=== PATIENT | male | born 1965 | race Caucasian/White ===

== ENCOUNTER 2019-12-14 14:17 | Outpatient (CLI) | payer OTHER ==
--- NOTE | 2019-12-14 16:09 | MRI ---
MRI OF THE LEFT KNEE WITHOUT CONTRAST: 12/14/19 HISTORY: Tear medial meniscus of left knee. COMPARISON: None. FINDINGS: MEDIAL MENISCUS: Superior articular surface flap tear body and posterior horn medial meniscus involving the free edge intermediate portion of the red zone. Gutter extrusion of the flap fragments 1 to 2 mm. LATERAL MENISCUS: Intact. ACL, PCL, MCL and LCL are intact. EXTENSOR MECHANISM: Quadriceps tendon, patella and patellar tendon are intact. There is abnormally thickened medial gomes lar plica which is scarred. CARTILAGE: Patellofemoral compartment: Multifocal full thickness cartilage fissures of the lateral patellar facet superiorly. There is some early subcortical reaction marrow change. Mild chondral fraying medial trochlea. Medial compartment: Involving the central weightbearing surface of the medial femoral condyle, 50% chondral fraying. No f ull thickness defect. Lateral compartment: Intact. MUSCLES: Normal muscle signal and bulk. SOFT TISSUES: Trace popliteal cyst. Minimal joint effusion. Mild distention of the superficial draining veins. IMPRESSION: 1. Superior articular surface flap tear of the body and posterior horn medial meniscus with 1 to 2 mm gutter extrusion. There is extension of fluid along the deep MCL from chronic tear. 2. Abnormally thickened and scarred medial patellar plica can be seen with plical impingement. 3. Multifocal full thickness cartilage fissures of the superior aspect lateral patellar facet. 4. 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 POS: [facility]
== END 2019-12-14 14:18 | disposition home or self-care (01) ==
LOC: SCSMRI 14:17
PROVIDERS: ATTEND Orthopaedic Surgery
DX: S83.242A Other tear of medial meniscus, current injury, left knee, initial encounter (principal); M94.262 Chondromalacia, left knee; M94.8X6 Other specified disorders of cartilage, lower leg; M25.862 Other specified joint disorders, left knee

== ENCOUNTER 2020-04-21 06:30 | Outpatient (CLI) | payer OTHER ==
[2020-04-21 13:56] LABS: #Eosinphils 0.2 thou/uL (0.0-0.7); #Lymphocytes 1.4 thou/uL (1.20-3.40); #Monocytes 0.5 thou/uL (0.11-0.59); #Neutrophils 3.9 thou/uL (1.40-6.50); %Basophils 0.2 % (0.0-1.0); %Eosinophils 3.3 % (0.0-10.0); %Lymphocytes 22.7 % (21.0-51.0); %Monocytes 8.6 % (0.0-10.0); %Neutrophils 65.2 % (42.0-75.0); Hemoglobin 15.6 g/dL (14.0-18.0); Mean Corpuscular HGB CONC 34.1 g/dL (32.0-36.0); Mean Corpuscular Hemoglobin 32.2 pg (27.0-31.0); Mean Corpuscular Volume 94.2 fL (78.0-98.0); Mean Platelet Volume 8.4 fL (7.4-10.4); Platelet Count 161 thou/uL (130-400); RBC Distribution Width 12.5 % (11.5-14.5); Red Blood Cell (RBC) Count 4.86 mill/uL (4.70-6.10); White Blood Cell (WBC) Count 5.9 thou/uL (4.8-10.8)
[2020-04-21 14:49] LABS: Anion Gap 14 mmol/L (10-20); BUN (Urea Nitrogen) 16 mg/dL (8.4-25.7); Calc. Creatinine Clearance 0 mL/min (70-130); Carbon Dioxide 24 mmol/L (22-29); Chloride 103 mmol/L (98-107); Estimated GFR-MDRD Greater than 90; Glucose 116 mg/dL (70-105); Potassium 4.5 mmol/L (3.5-5.1); Sodium 136 mmol/L (136-145)
[2020-04-22 11:59] LABS: SARS-CoV-2 MS2 Positive; SARS-CoV-2 N Gene Negative; SARS-CoV-2 S Gene Negative; SARS-CoV-2 by NAA Not Detected (NotDetected); SARS-CoV-2 orf1ab Negative
--- NOTE | 2020-04-23 12:09 | EKG ---
Test Reason : Blood Pressure : / mmHG Vent. Rate : 076 BPM Atrial Rate : 076 BPM P-R Int : 136 ms QRS Dur : 092 ms QT Int : 400 ms P-R-T Axes : 000 -39 058 degrees QTc Int : 450 ms Sinus rhythm with Premature atrial complexes Left axis deviation Incomplete right bundle branch block Minimal voltage criteria for LVH, may be normal variant Abnormal ECG No previous ECGs available Confirmed by MARIA FERNANDA SARMIENTO (2) on 04/23/2020 12:09:26 PM Referred By: SHILOH Confirmed By:MARIA FERNANDA SARMIENTO
== END 2020-04-21 06:31 | disposition home or self-care (01) ==
LOC: LABBT 06:30
PROVIDERS: ATTEND Orthopaedic Surgery
DX: Z01.818 Encounter for other preprocedural examination (principal); Z20.828 Contact with and (suspected) exposure to other viral communicable diseases; S83.207A Unspecified tear of unspecified meniscus, current injury, left knee, initial encounter
CPT/HCPCS: 80048; 85025; 87635; 93005; 93010; U0003

== ENCOUNTER 2020-04-26 07:24 | Day surgery (SDC) | payer OTHER ==
[2020-04-25 09:39] VITALS: BMI 44.1
[2020-04-26] MEDS ORDERED: PROPOFOL 20 ML ONE (07:50)
[2020-04-26] MEDS ORDERED: Clindamycin/D5W 600 mg/50 ml Premix Bag ONE (07:53)
[2020-04-26] MEDS ORDERED: Bupivacaine/Epinephrine 0.25% 30 ML VIAL ONE (08:28)
[2020-04-26] MEDS ORDERED: Midazolam HCl 2 mg/2 ml Vial ONE (08:34)
[2020-04-26] MEDS ORDERED: Fentanyl 100 MCG/2 ML VIAL ONE (08:34)
[2020-04-26] MEDS ORDERED: PROPOFOL 200 MG/20 ML VIAL ONE (10:58)
[2020-04-26] MEDS ORDERED: Bupivacaine HCl 0.5%/Epinephrine 1:200,000/PF 30 ml Vial ONE (10:58)
[2020-04-26] MEDS ORDERED: Ondansetron PF 4 MG/2 ML Vial ONE (10:58)
[2020-04-26] MEDS ORDERED: Ketorolac Tromethamine 30 MG/ML VIAL ONE (10:58)
[2020-04-26] MEDS ORDERED: Dexamethasone 20 MG/5 ML VIAL ONE (10:58)
[2020-04-26] MEDS ORDERED: Lidocaine 1% PF 5 ML VIAL ONE (10:58)
[2020-04-26] MEDS ORDERED: Lidocaine 2% w/Epinephrine 1:200K 20 ML VIAL ONE (10:58)
--- NOTE | 2020-04-27 08:15 | OP ---
DATE OF PROCEDURE: 04/26/2020 PREOPERATIVE DIAGNOSIS: Left knee complex tear of body and posterior horn of medial meniscus. POSTOPERATIVE DIAGNOSES: 1. Left knee complex tear of body and posterior horn of medial meniscus. 2. 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 3. Osteophytes of the inferior aspect of the patella. PROCEDURES PERFORMED: 1. Left knee arthroscopy with partial medial meniscectomy. 2. Debridement and shaving of unstable chondral flaps to include medial femoral condyle, trochlea, and patella. 3. Debridement of the osteophytes of the inferior pole of patella. ANESTHESIA: He did have a general anesthetic as well as a local knee block. DISPOSITION: He went to recovery room in stable condition. INDICATIONS: A 54-year-old male who has had months of knee problems, including pain, catching, and swelling and at this time, he opted for surgery. DESCRIPTION OF PROCEDURE: After all appropriate consent forms were explained and signed, the patient was taken back to the operating room and at this time was given general anesthetic. Once the level of anesthesia was appropriate, a tourniquet was placed in the left thigh and the leg was placed in arthroscopic leg herrera. The leg was then prepped and draped in standard surgical fashion. Limb was exsanguinated and tourniquet was taken up to 300 mmHg. An inferolateral portal was established and the scope was placed into the knee joint. A needle localization technique was then used to make a medial working portal. Diagnostic arthroscopy commenced in the notch. The ACL and PCL were probed, found to be intact. There were osteophytes in the notch and we chose to leave these alone. Medial compartment showed the femoral condyle has some unstable chondral flaps, which were debrided with a shaver. The tibial plateau in the most post was in good condition. There was a very complex tear of the posterior horn and body of the medial meniscus to include horizontal cleavage component, vertical component, and also on the body. There was a flap tear off the superior aspect of the meniscus, which flipped on itself and was actually located outside of the medial joint. Partial meniscectomy was performed back to stable base with the biter and shaver. Once this was done, we turned our attention laterally. Femur, tibia, and meniscus were in good condition. The gutters were swept through. There were no loose bodies. In the patellofemoral joint, the patient did have significant chondral loss in the trochlea. There were some grade 2 changes on the proximal facet of the patella. There were some osteophytes in the inferior pole of the patella. Shaver was used to take these osteophytes down. At this time, we went around the knee one more time making sure that any loose pieces of cartilage were removed. Once we ensure that this was done, the scope was removed. The knee was drained and each portal was closed with a simple nylon stitch. Bulky sterile dressing was applied. At this time, tourniquet was let down. Toes pinked up nicely. The patient was awakened. He was taken to recovery room in stable condition. All counts correct at the end of the case. He did receive preoperative IV antibiotics. Job ID: [id number] [facility]
== END 2020-04-26 14:00 | disposition home or self-care (01) ==
LOC: SDC 07:24
PROVIDERS: ATTEND Orthopaedic Surgery
PROC: 0SBD4ZZ Excision of Left Knee Joint, Percutaneous Endoscopic Approach (ICD-10-PCS; principal; 2020-04-26)
DX: S83.232A Complex tear of medial meniscus, current injury, left knee, initial encounter (principal); M25.762 Osteophyte, left knee; I10 Essential (primary) hypertension; Z79.899 Other long term (current) drug therapy; Z88.0 Allergy status to penicillin; Z88.1 Allergy status to other antibiotic agents
CPT/HCPCS: J1100; J1885; J2250; J2405; J2704; J3010; J3490